=== PATIENT | female | born 1965 | race African-American/Black ===

== ENCOUNTER 2017-03-10 07:32 | Emergency (ER) | payer OTHER ==
[~2017-03-10] VITALS: Ht 160 cm; Wt 81.3 kg
[2017-03-10] MEDS ORDERED: WELLBUTRIN100 MG PO (09:59)
[2017-03-10] MEDS ORDERED: LISINOPRIL40 MG PO (10:00)
[2017-03-10] MEDS ORDERED: PREDNISONE50 MG PO (12:41)
[2017-03-10] MEDS ORDERED: LOTRISONE15 GM TP (13:10)
[2017-03-10 13:18] VITALS: BP 150/82
== END 2017-03-10 13:20 | disposition home or self-care (01) ==
LOC: EME 07:32
DX: T78.3XXA Angioneurotic edema, initial encounter (principal); T46.4X5A Adverse effect of angiotensin-converting-enzyme inhibitors, initial encounter; I10 Essential (primary) hypertension
CPT/HCPCS: 99281; 99285; J2930; S0028